=== PATIENT | female | born 1990 | race African-American/Black ===

== ENCOUNTER 2017-01-22 11:47 | Emergency (ER) | payer SELFPAY ==
[~2017-01-22] VITALS: Ht 162.6 cm; Wt 50.9 kg
[2017-01-22] MEDS ORDERED: LEVE250T55 PO (12:00)
[2017-01-22 12:07] LABS: GLUCOSE,POINT OF CARE 67 MG/DL (70-110)
[2017-01-22 12:24] VITALS: BP 125/59
== END 2017-01-22 12:45 | disposition home or self-care (01) ==
LOC: EMS 11:48
DX: G40.909 Epilepsy, unspecified, not intractable, without status epilepticus (principal); V49.9XXA Car occupant (driver) (passenger) injured in unspecified traffic accident, initial encounter; Y93.89 Activity, other specified; Y92.410 Unspecified street and highway as the place of occurrence of the external cause; Y99.8 Other external cause status
CPT/HCPCS: 82962; 99283